=== PATIENT | female | born 1960 | race Caucasian/White ===

== ENCOUNTER → 2024-01-12 13:09 | Outpatient (REF) | payer BC, SELFPAY ==
[2024-01-12 14:28] LABS: Blood Urea Nitrogen 6 mg/dl (7-17); Carbon Dioxide 32 mmol/L (22-30); Chloride 100 mmol/L (98-107); Glucose 119 mg/dl (70-99); Potassium 3.2 mmol/L (3.5-5.1); Sodium 135 mmol/L (135-145); eGFR > 60.00
== END ==
LOC: REG 13:09
PROVIDERS: ATTENDING PHYSICIAN Orthopaedic Surgery; FAMILY PHYSICIAN Family Medicine
DX: Z01.818 Encounter for other preprocedural examination (principal)
CPT/HCPCS: 36415; 80048; 93005